=== PATIENT | female | born 1970 ===

== ENCOUNTER 2021-04-05 10:52 | Outpatient (CLI) | payer OTHER, SELFPAY ==
--- NOTE | 2021-04-05 10:59 | US_ITS ---
WS: [id number] TRANSABDOMINAL PELVIC AND TRANSVAGINAL PELVIC ULTRASOUND HISTORY: PELVIC PAIN/THICKENED ENDOMETRIUM COMPARISON: None available. Uterus: 8.8 cm x 6.5 cm x 4.6 cm. Normal size anteverted uterus. Endometrium: 0.7 cm. Poorly visualized endometrium. No abnormality identified. Right ovary: 5.1 cm x 4.3 cm x 4.5 cm. Solid mass with low-level echoes and mild through transmission in the RIGHT adnexa closely associated with the ovary. The mass measures 4.0 x 3.7 x 3.7 cm and is v josie similar in appearance and size to the prior study. Most consistent with an endometrioma. The hebert cent ovary is difficult to visualize. No torsion evident. Left ovary: 3.4 cm x 2.6 cm x 2.3 cm. Normal size and echogenicity. No free fluid. US/US pelvic with transvaginal IMPRESSION: 1. Stable solid mass with low-level homogeneous echoes most consistent with en dometrioma involving the RIGHT adnexa. This mass measures 4.0 x 3.7 x 3.7 cm wi th no increase in size. 2. Otherwise negative.
== END 2021-04-05 10:53 | disposition home or self-care (01) ==
LOC: US 10:54
PROVIDERS: PCP Family Medicine; Visit Provider Family Medicine
DX: R10.2 Pelvic and perineal pain (principal); R93.89 Abnormal findings on diagnostic imaging of other specified body structures
CPT/HCPCS: 76830; 76856

== ENCOUNTER 2021-06-06 10:11 | Outpatient (CLI) | payer OTHER, SELFPAY ==
--- NOTE | 2021-06-06 10:18 | US_ITS ---
WS: [id number] RIGHT UPPER QUADRANT ULTRASOUND HISTORY: RUQ ABDOMINAL PAIN COMPARISON: None available. Liver: 15.2 cm in length. Normal size liver. No bile duct dilatation or mass. Gallbladder: Normally distended gallbladder with no stones or wall thickening. CBD: 0.2 cm Pancreas: Normal size and echogenicity. Right kidney: 11.2 cm in length. Normal size and echogenicity. No hydronephrosis or mass. Aorta and IVC: Unremarkable abdominal aorta and IVC. No ascites. US/US abdomen limited [id number] IMPRESSION: Normal RIGHT upper quadrant ultrasound.
== END 2021-06-06 10:12 | disposition home or self-care (01) ==
LOC: US 10:13
PROVIDERS: PCP Family Medicine; Visit Provider Family Medicine
DX: R10.11 Right upper quadrant pain (principal)
CPT/HCPCS: 76705

== ENCOUNTER 2022-04-03 15:00 | Outpatient (CLI) | payer OTHER, SELFPAY ==
--- NOTE | 2022-04-03 15:05 | US_ITS ---
WS: [id number] TRANSABDOMINAL PELVIC AND TRANSVAGINAL PELVIC ULTRASOUND HISTORY: PELVIC PAIN COMPARISON: 04/05/2021 Uterus: 7.2 cm x 4.5 cm x 3.6 cm. Normal size anteverted uterus. No fibroid or mass. Endometrium: 0.8 cm. Normal homogeneity. No increased vascularity. Right ovary: 4.0 cm x 4.0 cm x 3.6 cm. Stable hypoechoic mass with low-level echoes in the RIGHT adne xa measures 3.2 x 2.7 x 2.6 cm. Very similar to prior studies. There is through transmission. Left ovary: 3.0 cm x 2.3 cm x 2.0 cm. Normal ovary. No increased vascularity. No mass. No free fluid in the cul-de-sac. US/US pelvic with transvaginal IMPRESSION: 1. Stable size of the solid mass in the RIGHT adnexa most consistent with an e ndometrioma measuring 3.2 x 2.7 x 2.6 cm. This was better visualized on the [place]ghan or ultrasound. 2. Normal endometrium.
== END 2022-04-03 15:01 | disposition home or self-care (01) ==
PROVIDERS: PCP Family Medicine; Visit Provider Family Medicine
DX: R10.2 Pelvic and perineal pain (principal)
CPT/HCPCS: 76830; 76856

== ENCOUNTER → 2023-05-21 14:38 | Outpatient (BNVA) | payer SELFPAY | PROVIDERS: PCP Family Medicine; Visit Provider Family Medicine | DX: Z51.81 Encounter for therapeutic drug level monitoring (principal); R53.81 Other malaise; R53.83 Other fatigue; F32.A Depression, unspecified; J45.20 Mild intermittent asthma, uncomplicated | CPT/HCPCS: 80053; 85025; 85651; 86141 ==

== ENCOUNTER → 2023-10-29 11:50 | Outpatient (BNVA) | payer MEDICAID, SELFPAY | PROVIDERS: PCP Family Medicine; Referring Provider Family Medicine; Visit Provider Internal Medicine | DX: E34.9 Endocrine disorder, unspecified (principal); F32.A Depression, unspecified; E03.9 Hypothyroidism, unspecified; J45.20 Mild intermittent asthma, uncomplicated | CPT/HCPCS: 36415; 84439; 84443; 86376; 86800 ==